=== PATIENT | female | born 1970 | race Caucasian/White ===

== ENCOUNTER → 2016-12-20 | Outpatient (CLI) | payer BC | LOC: BMCIMAGING 15:05 | DX: Z12.31 Encounter for screening mammogram for malignant neoplasm of breast (principal) | CPT/HCPCS: G0202 ==

== ENCOUNTER → 2017-12-20 | Outpatient (CLI) | payer OTHER | LOC: BMCIMAGING 08:58 | PROVIDERS: ATTEND Nurse Practitioner Adult Health | DX: Z12.31 Encounter for screening mammogram for malignant neoplasm of breast (principal) ==

== ENCOUNTER 2018-03-10 10:19 | Emergency (ER) | payer OTHER ==
[2018-03-10 10:25] VITALS: BP 141/114
--- NOTE | 2018-03-10 10:28 | EDPHY ---
H & P Stated Complaint: pain x 1 month/runner/sent by pt r/t ?pelvic fx Time Seen by Provider: 03/10/18 10:27 HPI/ROS: HPI: This is a 47-year-old female who presents with Chief Complaint: pain x 1 month/runner/sent by pt r/t ?pelvic fx Location: Left groin Quality: Pain Duration: 6 weeks Signs and Symptoms: No bleeding, no radiation, no numbness, no weakness, no tingling, no incontinence, no decreased range of motion, no swelling, + pain, no fever Timing: Daily Severity: Moderate Context: Patient presents from her physical therapist office with request of pelvic imaging to determine if she has a stress fracture in her left pelvic area. Patient was running 5 miles approximately 6 weeks ago and felt a pulling sensation in her left groin and then pain; nonradiating in nature. One week later, she completed a half marathon. She reports that the area is deep and extremely tender to touch and the pain is not improving with physical therapy. She reports that she has good range of motion. She is ambulatory without any deficits. LMP 11/29/2027 days ago. Modifying Factors: Physical therapy and [id number] anti-inflammatories Comment: ROS: see HPI Constitutional: No fever, no chills, no weight loss Eyes: No blurred vision Respiratory: No shortness of breath, no cough Cardiovascular: No chest pain Gastrointestinal: No nausea, no vomiting no diarrhea Genitourinary: No dysuria Extremities: No myalgias Neurologic: No weakness, no numbness Skin: No rashes Hematologic: No bruising, no bleeding MEDICAL/SURGICAL/SOCIAL HISTORY: Medical history: Generally healthy. Does not take any regular medications. Surgical history: Denies Social history: Nonsmoker. CONSTITUTIONAL: Extremely polite and cooperative middle-aged white female, awake and alert, no obvious distress HEENT: Atraumatic and normocephalic. Cardiovascular: Normal S1/S2, regular rate, regular rhythm, without murmur rub or gallop. PULMONARY/CHEST: Symmetrical and nontender. no crepitus. Clear to auscultation bilaterally. Good air movement. No accessory muscle usage. ABDOMEN: Soft, nondistended, nontender, no ecchymosis. PELVIC: no pain with rocking; bilateral hips flexion 125 degrees, extension 30 degrees, with no pain internal rotation and no pain external rotation. Mild tenderness directly in the left inguinal canal; no hernia appreciated. BACK: No midline tenderness, no paraspinous spasm, deep tendon reflexes 2/2, no pain with straight leg raise, No foot drop. Achilles reflexes are equal bilaterally. Able to walk on heels and toes without difficulty. EXTREMITIES: 2/2 pulses, strength 5/5, no deformities, no clubbing, no cyanosis or edema. NEUROLOGICAL: no focal neuro deficits. GCS 15. Light touch sensation intact. SKIN: Warm and dry, no erythema. No signs of abscess. no rash. Good capillary refill. Source: Patient Exam Limitations: No limitations - Personal History LMP (Females 10-55): 22-28 Days Ago Current Tetanus Diphtheria and Acellular Pertussis (TDAP): Yes - Medical/Surgical History Hx Asthma: No Hx Chronic Respiratory Disease: No Hx Diabetes: No Hx Cardiac Disease: No Hx Renal Disease: No Hx Cirrhosis: No Hx Alcoholism: No Hx HIV/AIDS: No Hx Splenectomy or Spleen Trauma: No Other PMH: denies - Social History Smoking Status: Never smoked Constitutional: Initial Vital Signs Temperature (C) 36.7 C 03/10/18 10:22 Heart Rate 78 03/10/18 10:22 Respiratory Rate 18 03/10/18 10:22 Blood Pressure 141/114 H 03/10/18 10:22 O2 Sat (%) 95 03/10/18 10:22 O2 Delivery Mode Room Air Allergies/Adverse Reactions: No Known Allergies Allergy (Verified 03/10/18 10:20) Home Medications: Medication Instructions Recorded NK [No Known Home Meds] 03/10/18 Medical Decision Making - Diagnostics Imaging Results: Imaging Impressions Pelvis X-Ray 03/10/18 10:30 Impression: 1. Anatomic alignment of each hip. 2. Age-indeterminate avulsion fragments just above the left greater trochanter and along the lateral upper left iliac contour. If there is progression of the patient's symptoms, MR imaging could be considered. ED Course/Re-evaluation: No signs of neurovascular compromise/tenting of skin/compartment syndrome/ extremities and joints examined above and below area of concern and are neurovascularly intact/cellulitis/abscess. Pelvic x-ray ordered and shows tiny avulsion fractures. Discuss possibility of CT versus MRI for further evaluation but treatment is the same with rest and physical therapy for 12 weeks. Patient prefers to hold off on further imaging if at all possible. This patient was seen under the supervision of my secondary supervising physician. I evaluated care for this patient independently. Discussed this patient with Dr. Self who did not see the patient. Differential Diagnosis: Differential diagnosis includes but is not limited to inguinal strain, pubic rami fracture, ligamentous sprain. Departure - Departure Disposition: Home, Routine, Self-Care Clinical Impression: Strain of left inguinal muscle Qualifiers: Encounter type: initial encounter Qualified Code(s): S39.013A - Strain of muscle, fascia and tendon of pelvis, initial encounter Suspected fracture of pelvis Qualifiers: Fracture type: closed Qualified Code(s): R29.898 - Other symptoms and signs involving the musculoskeletal system Condition: Good Instructions: Groin Strain (ED) Additional Instructions: Please limit physical activity to low-impact until pain free. This can take between 6 and 12 weeks. If symptoms persist greater than 6-12 weeks, it is recommended that you obtain an MRI of your pelvis outpatient. Return to the ER immediately if you experience new or worsening pain, discoloration, numbness, tingling, or any other symptoms that concern you. Referrals: Shiloh Dawson NP [Primary Care Provider] - As per Instructions
== END 2018-03-10 11:07 | disposition home or self-care (01) ==
DX: S39.013A Strain of muscle, fascia and tendon of pelvis, initial encounter (principal); R29.898 Other symptoms and signs involving the musculoskeletal system; X58.XXXA Exposure to other specified factors, initial encounter